=== PATIENT | female | born 1935 | race Asian ===

== ENCOUNTER 2020-06-30 23:59 | Inpatient (IN) | payer OTHER, MEDICARE, SELFPAY ==
[~2020-06-30] VITALS: Ht 160 cm; Wt 45.4 kg
[~2020-06-30 23:59] MED LIST: ASPI-1822 PO; ATOR20TA40 PO; CARV6.252 PO; HYDR25TA32 PO; LEVO5TAB12 PO; LOSA25TA1 PO; OMEP20TC PO
--- NOTE | 2020-07-01 00:11 | NUR ---
PATIENT TAKEN TO BED 11 VIA GURNEY WITH ASSISTANCE FROM EMS.
--- NOTE | 2020-07-01 00:15 | NUR ---
PT 84 Y/O FEMALE BIBA FROM HOME FOR C/O SOB FOLLOWED BY CP X 1 HOUR AT HOME. PER PATIENT SHE FELT SOB X 1 HOUR AND BEGAN TO FEEL CHEST PAIN SHORTLY AFTER. PATIENT STATES PAIN ,"IS TIGHT, ESPECIALLY WHEN I FEEL LIKE I CAN'T BREATHE." PATIENT NOTED WITH WHEEZING UPON EXPIRATION IN UPPER BILATERAL LOBES. PATIENT PLACED ON WATER SKI ASSEMBLER. PATIENT VSS, AFEBRILE. BED IS LOCKED AND IN LOWEST POSITION. MEDHX: HTN, GERD ALLERGIES: NKA RX: METROPOLOL, OMEPRAZOLE.
[2020-07-01 00:20] VITALS: BP 188/78
--- NOTE | 2020-07-01 00:30 | NUR ---
PATIENT GRAND DAUGHTER DEIRDRE [phone]
[2020-07-01] MEDS ORDERED: ALBUTEROL SULFATE/IPRATROPIU 3 ML SOL IH ONE (01:00)
[2020-07-01] MEDS ORDERED: AZITHROMYCIN 500 MG in DEXTROSE 5% 250 ML IV ONE (01:00)
[2020-07-01] MEDS ORDERED: DEXAMETHASONE 4 MG/ML VIAL IVP ONE (01:00)
--- NOTE | 2020-07-01 01:06 | NUR ---
BLOOD LABS COLLECTED AND HANDED TO TERESA BASS ON THE UNIT
--- NOTE | 2020-07-01 01:15 | NUR ---
NELLIE AND FLU SWAB COLLECTED, LABELED AND HANDED TO HYDRO STATION SUPERVISOR SHELIA ON THE UNIT.
[2020-07-01] MEDS ORDERED: cefTRIAXone 1,000 MG VIAL ONE (01:21)
[2020-07-01] MEDS ORDERED: AZITHROMYCIN 500 MG INJ VIAL IV ONE (01:32)
[2020-07-01 01:41] LABS: HEMATOCRIT 23.2 % (36-48); MEAN CORPUSCULAR HEMOGLOBIN 20 pg (27-31); MEAN CORPUSCULAR HGB CONC 29 g/dL (33-37); MEAN CORPUSCULAR VOLUME 68.7 fL (80-94); PLATELET COUNT (AUTO) 245 K/uL (140-450); RED BLOOD CELL COUNT(AUTO) 3.37 MIL/uL (4.20-5.40); RED CELL DISTRIBUTION WIDTH 20.2 % (11.6-13.7); WHITE BLOOD COUNT (AUTO) 13.9 K/uL (4.8-10.8)
[2020-07-01 01:53] LABS: HEMOGLOBIN 6.7 g/dL (12.0-16.0)
[2020-07-01 01:54] LABS: FIBRINOGEN 330 mg/dL (200-400)
[2020-07-01 01:58] LABS: LYMPHOCYTES % (MANUAL) 16 % (20-46); MONOCYTES % (MANUAL) 3 % (5-12)
[2020-07-01 02:03] LABS: ALBUMIN 3.3 g/dL (3.4-5.0); ANION GAP 16.9 (8-16); ASPARTATE AMINOTRANSFERASE 25 U/L (15-37); CARBON DIOXIDE 20.5 mmol/L (21-32); CHLORIDE 114 mmol/L (98-107); GLUCOSE 120 mg/dL (74-106); POTASSIUM 4.4 mmol/L (3.5-5.1); SODIUM SERUM 147 mmol/L (136-145); TOTAL BILIRUBIN 0.2 mg/dL (0.0-1.0); UREA NITROGEN, BLOOD 18 mg/dL (7-18)
[2020-07-01 02:10] LABS: C-REACTIVE PROTEIN QUANT 0.2 mg/dL (0.0-0.9)
[2020-07-01] MEDS ORDERED: NACL 0.9% 500 ML IV ONE (02:10)
[2020-07-01 02:11] LABS: D-DIMER 1740 ng/ml (0-400)
[2020-07-01] MEDS ORDERED: ASPIRIN 325 MG TAB PO ONE (02:15)
[2020-07-01 02:21] LABS: PROTHROMBIN TIME 10.2 secs (10.8-13.4)
--- NOTE | 2020-07-01 02:31 | NUR ---
PATIENT ASSTED TO BEDSIDE COMODE TO HAVE BM, AND URINATE. PATIENT IS SMAL, BROWN, FORMED, SKIN LEFT CLEAN AND DRY. SKIN INTACT.
[2020-07-01] MEDS ORDERED: OMEP20TC10 PO (02:47)
[2020-07-01] MEDS ORDERED: METO25TA14 PO (02:47)
[2020-07-01] MEDS ORDERED: ONDANSETRON 4 MG/2 ML VIAL IVP PRN (03:15)
--- NOTE | 2020-07-01 03:51 | NUR ---
PATIENT REMAINS ON FUR DRESSING SUPERVISOR. VSS. BED IS LOCKED AND IN LOWEST POSITON.
[2020-07-01 04:09] LABS: CREATINE KINASE MB 2.7 ng/mL (0-3.6)
--- NOTE | 2020-07-01 05:22 | NUR ---
PAGED TO REPORT ABNORMAL LAB.
--- NOTE | 2020-07-01 05:36 | NUR ---
NO NEW ORDERS RECIVED FROM FOR ABNORMAL TROPONIN LAB.
--- NOTE | 2020-07-01 05:45 | NUR ---
Consent signed per PATIENT GRANDDAUGHTER agreeing to administration of blood. Blood has been type and crossmatched. Blood sent from blood bank. Information on unit of blood checked against patient wristband at bedside by two nurses. All information matches. Patient or responsible libertarian informed of potential complications associated with blood transfusion. Informed of possible transfusion reaction symptoms. Aware of need to notify nurse at once of itching, shortness of breath, flushing, feeling of impending doom, or other symptoms not previously present. Vital signs taken within 5 minutes prior to initiation of transfusion. RN will remain with patient for first 15 minutes of transfusion at which time vital signs will be re-assessed.
--- NOTE | 2020-07-01 06:33 | NUR ---
PATIENT REMAINS ON DUST BRUSH ASSEMBLER. VSS. PATIENT RESTING WITH EYES CLOSED, RESPIRATIONS ARE EVEN AND UNLABORED. SKIN IS WARM AND DRY TO TOUCH. BED IS LOCKED AND IN LOWEST POSITION.
--- NOTE | 2020-07-01 07:30 | NUR ---
TRANSFER OF CARE GIVEN TO ALYCIA PEPE. PATIENT CONTINUES ON BLOOD TRANSFUSION. VSS. AND REMAINS ON CLAIM PROCESSING SPECIALIST.
--- NOTE | 2020-07-01 07:30 | NUR ---
RECIEVED REPORT FROM AFSHIN MARISCAL. TRANSFER OF CARE AT THIS TIME.
--- NOTE | 2020-07-01 08:30 | NUR ---
pt eating breakfast in bed. bed locked and in lowest position. side rails x2. all pt needs met at this time.
[2020-07-01] MEDS: PANTOPRAZOLE 40 MG TABEC PO SCH (09:00)
[2020-07-01] MEDS: carvediloL 6.25 MG TAB PO SCH ×2 (09:00→22:54)
[2020-07-01] MEDS: LOSARTAN 25 MG TAB PO SCH (09:00)
[2020-07-01] MEDS: ATORVASTATIN 20 MG TAB PO SCH (09:00)
[2020-07-01] MEDS: ASPIRIN 81 MG TAB.CHEW PO SCH (09:00)
[2020-07-01] MEDS: FUROSEMIDE 40 MG/4 ML VIAL IVP SCH ×2 (09:00→22:55)
[2020-07-01] MEDS ORDERED: ASPIRIN 81 MG TAB.CHEW ONE (09:58)
--- NOTE | 2020-07-01 10:35 | NUR ---
PATIENT HAS BEEN SCREENED AND CATEGORIZED MODERATE NUTRITION RISK. PATIENT WILL BE SEEN WITHIN 3-5 DAYS OF ADMISSION. 07/06/[address]
--- NOTE | 2020-07-01 11:57 | NUR ---
pt changed into new diaper and gown, new bed linens provided. hand stonecutter/pulse ox in place. bed locked and in lowest position. side rails x2.
--- NOTE | 2020-07-01 13:00 | NUR ---
PT PROVIDED WITH LUNCH TRAY. SAT PT UP IN BED. EATING FOOD.
--- NOTE | 2020-07-01 13:16 | NUR ---
SOCIAL WORK NOTE: Patient's Orientation Unable To Assess Information Provided By DEIRDRE EN - GRANDDAROJELIO Comments SW WAS UNABLE TO MEET PATIENT AT BEDSIDE DUE TO MEDICAL CONDITION. SW COMPLETED ASSESSMENT WITH GRANDDAUGHTER. Risk Lead, Realtionship and Phone Number DEIRDRE ERWIN GRANDDAUGHTER [phone] KEON ERWIN SON [phone] Healthcare Power of Hydrological Technical Officer No Does Patient Have a POLST No Identifying Problems No Social Work Triggers Is A Social Work Consult Needed No Mandate Report Filed No Explanation Of Identifying Problems PATIENT IS AN 84-YEAR-OLD FEMALE ADMITTED FOR ANEMIA. PATIENT HAS PMHX OF ANEMIA, HYPERTENSION, NSTEMI, CHF, AND AFIB. Admitted From Home Pre-Admission Level Of Functioning Status Independent With DME Prior Resources/Services Used In Last 12 Months No Prior Resources Used Prior DME Walker Living Situation Lives With Family House Patient Had Caregiver No Home Support No Caregiver Issues Financial Issues No Known Financial Issue Referral To The Financial Counselor Needed No Factors/Needs No D/C Needs Identified Pt/Rep Participated In Discharge Plan Yes Patient/Family Agress With Discharge Plan Yes Discharge Plan Comments TENTATIVE DISCHARGE PLAN IS FOR PATIENT TO RETURN HOME. DC Plan Status Initiated
--- NOTE | 2020-07-01 14:45 | NUR ---
PT CHANGED INTO CLEAN DIAPER, REPOSITIONED IN BED. INSPECTOR TOYS/PULSE OX IN PLACE. BED LOCKED AND IN LOWEST POSITION. ALL PT NEEDS MET AT THIS TIME.
--- NOTE | 2020-07-01 15:00 | NUR ---
DC PLANNIN YRS OLD FEMALE PATIENT WAS ADMITTED FROM HOME WITH A DX OF ANEMIA, METABOLIC ACIDOSIS, CHF ELEVATED TROPONIN. PT HAS A HX OF CORONARY DISEASE, A-FIB HTN AND ANEMIA. CXR SHOWED SUSPECTED TRACE BILATERAL PLEURAL EFFUSIONS. RAPID COVID TEST NEGATIVE. H/H 6.7/23.2 TRANSFUSED 1 UNIT PRBC H/H 8.6/28.0. ADMINISTERED ROCEPHIN IV ABX. CONSULTED WITH TRAFFIC ROUTING ENGINEER DR KELLY Aranda DC PLAN TO GO HOME WHEN STABLE CM TO FOLLOW Addendum: 07/03/20 at 1639 by Radha Fraser CM DC METAL TUBE CUTTER: SPOKE TO PATIENTS GRANDDAUGHTER DEIRDRE [phone] TO DISCUSS SNF. SHE AND HER FAMILY ARE NOT AGREEABLE TO SNF.
--- NOTE | 2020-07-01 17:08 | NUR ---
PT ASLEEP IN BED. EQUAL CHEST RISE AND FALL. NO ACUTE DISTRESS NOTED AT THIS TIME. BED LOCKED IN LOWEST POSITION. SIDE RAILS X2. BEDSIDE MONITOR IN PLACE. CALL LIGHT WITHIN REACH.
--- NOTE | 2020-07-01 17:30 | NUR ---
PT ASSISTED WITH DIAPTER CHANGE. PT SACRAL AREA CLEANED, CHUCKS AND DIAPER REPLACED. PT HAD BOWEL MOVEMENT X 1, BROWN, FORMED. PT PLACED BACK IN POSITION OF COMFORT WITH NO ACUTE DISTRESS NOTED AT THIS TIME. EQUAL CHEST RISE AND FALL. BED LOCKED IN LOWEST POSITION. SIDE RAILS X2. BEDSIDE MONITOR IN PLACE. CALL LIGHT WITHIN REACH.
--- NOTE | 2020-07-01 18:57 | NUR ---
pt provided with dinner tray
--- NOTE | 2020-07-01 19:30 | NUR ---
RECEIVED REPORT FROM AFSHIN TONG FOR CONTINUATION OF CARE AT THIS TIME. PT IS AWAKE AND REQUESTING HER LIGHTS TO BE TURNED OFF. PT DOESN'T WANT STACIA CARE AT THIS TIME. PT IS CONNECTED TO THE VENETIAN BLIND CLEANER. SAO2@99% ON 2L NC. PT IS NOT IN ANY ACUTE DISTRESS AT THIS TIME. BED IS LOCKED AND IN LOWEST POSITION. SIDE RAILSX1. CALL LIGHT WITHIN REACH. NO VISIBLE DISTRESS NOTED. WILL CONTINUE TO MONITOR.
--- NOTE | 2020-07-01 19:30 | NUR ---
TRANSFER OF CARE AND REPORT GIVEN TO AFSHIN COLLADO. VITAL SIGNS STABLE.
--- NOTE | 2020-07-01 20:00 | NUR ---
PT UNWILLING TO PROVIDE URINE SPECIMEN AT THIS TIME. SHE DOESN'T WANT TO BE PROVIDED WITH STACIA-CARE AT THIS TIME.
--- NOTE | 2020-07-01 21:30 | NUR ---
PT IS ASLEEP. LIGHT TURNED OF. VISIBLE RISE AND FALL OF CHEST NOTED. PT IS CONNECTED TO THE MAYONNAISE MIXER. SAO2@99% ON 2L NC. PT IS NOT IN ANY ACUTE DISTRESS AT THIS TIME. BED IS LOCKED AND IN LOWEST POSITION. SIDE RAILSX1. CALL LIGHT WITHIN REACH. WILL CONTINUE TO MONITOR.
--- NOTE | 2020-07-01 22:30 | NUR ---
PT DOESN'T WANT TO USE BEDPAN AT THIS TIME- URINE SPECIMEN NOT COLLECTED
--- NOTE | 2020-07-01 23:30 | NUR ---
PT IS ASLEEP. VISIBLE RISE AND FALL OF CHEST NOTED. PT IS CONNECTED TO THE ROOFING SUPERINTENDENT. SAO2@99% ON 2L NC. PT IS NOT IN ANY ACUTE DISTRESS AT THIS TIME. BED IS LOCKED AND IN LOWEST POSITION. SIDE RAILSX1. CALL LIGHT WITHIN REACH. WILL CONTINUE TO MONITOR.
--- NOTE | 2020-07-02 01:30 | NUR ---
PT IS SLEEPING ON HER LEFT SIDE. BED IS IN LOW FOWLERS POSITION. VISIBLE RISE AND FALL OF CHEST NOTED. PT IS CONNECTED TO THE COUGAR HUNTER. SAO2@99% ON 2L NC. PT IS NOT IN ANY ACUTE DISTRESS AT THIS TIME. BED IS LOCKED AND IN LOWEST POSITION. SIDE RAILSX1. CALL LIGHT WITHIN REACH. WILL CONTINUE TO MONITOR.
--- NOTE | 2020-07-02 01:50 | NUR ---
CALLED AFSHIN DELANEY TO GIVE REPORT TO HER FOR TRANSFER OF CARE AND ADMISSION TO TELEMETRY FLOOR.
[2020-07-02 02:18] VITALS: BP 130/59
--- NOTE | 2020-07-02 02:18 | NUR ---
PT ARRIVED FROM ER ON GURNEY. PT WAS TRANSFERRED TO BED. PT IS AWAKE, LAYING IN SEMI FOWLERS POSITION. ON 2L O2 NC. BREATHING IS UNLABORED. CHEST RISE AND FALL IS SYMMETRICAL. DIAPER IN PLACE AND DRY. BOWEL SOUNDS ARE PRESENT IN ALL QUADRANTS. SKIN IS WARM, DRY, AND INTACT. IV IS IN THE LEFT WRIST 22 GAUGE SALINE LOCKED. PT IS COVID NEGATIVE. PLAN OF CARE DISCUSSED. PT IS STABLE. FALL PRECAUTIONS NOW IN PLACE.
--- NOTE | 2020-07-02 02:20 | NUR ---
TWO UNITS OF PRBC'S ORDERED. ONE UNIT WAS GIVEN IN THE ED ON 07/01 AT 0510 AM. SECOND UNIT WAS NOT ADMINISTERED IN ED ALL DAY. ORDERED A STAT H&H AND APPAREL PATTERN MAKER IS NOW AT THE BEDSIDE DRAWING THE LABS. WILL WAIT FOR RESULTS.
--- NOTE | 2020-07-02 02:25 | NUR ---
Patient will be admitted to care of . Admited to TELEMETRY. Will go to [id number]. Belongings list completed. Report to AFSHIN DELANEY.
[2020-07-02 02:35] LABS: HEMATOCRIT 25.8 % (36-48); HEMOGLOBIN 8.1 g/dL (12.0-16.0)
[2020-07-02 03:06] LABS: CREATINE KINASE MB 3.6 ng/mL (0-3.6)
--- NOTE | 2020-07-02 03:10 | NUR ---
RECEIVED RESULTS FROM FAMILY DINNER SERVICE SPECIALIST FOR H&H. HEMOGLOBIN IS 8.1 AND HCT 25.8. TRANSFUSE UNDER 7.0 AFTER SPEAKING WITH CHARGE NURSE. PT IS STABLE AT THIS TIME. NO BOWEL MOVEMENT YET FOR OCCULT STOOL SAMPLE.
[2020-07-02 04:00] VITALS: BP 147/57
--- NOTE | 2020-07-02 04:00 | NUR ---
PT IS LAYING AWAKE IN BED. PT YELLS ALOUD EVERY NOW AND THEN. USED REDIRECTION TO CALM PT DOWN. PT IS RESTLESS AND WILL NOT SLEEP AT THIS TIME. WILL CONTINUE TO MONITOR.
--- NOTE | 2020-07-02 06:00 | NUR ---
PT IS AWAKE AND ASKED TO USE THE RESTROOM. PT WAS ASSISTED TO THE RESTROOM. GAIT IS VERY UNSTEADY. BEDPAN NEEDED FOR NEXT VOID. PT IS BACK IN BED AND STABLE. 2L O2 NC IN PLACE WITH BREATHING UNLABORED.
[2020-07-02 07:35] LABS: ALBUMIN 3.6 g/dL (3.4-5.0); ANION GAP 17.7 (8-16); ASPARTATE AMINOTRANSFERASE 20 U/L (15-37); CARBON DIOXIDE 23.1 mmol/L (21-32); CHLORIDE 107 mmol/L (98-107); CREATININE 1.2 mg/dL (0.6-1.3); GLUCOSE 137 mg/dL (74-106); MAGNESIUM 1.7 mg/dL (1.8-2.4); POTASSIUM 3.8 mmol/L (3.5-5.1); SODIUM SERUM 144 mmol/L (136-145); TOTAL BILIRUBIN 0.8 mg/dL (0.0-1.0); UREA NITROGEN, BLOOD 31 mg/dL (7-18)
--- NOTE | 2020-07-02 07:35 | NUR ---
ENDORSED PT TO DAY SHIFT NURSE FOR CONTINUITY OF CARE. PT IS STABLE AT THIS TIME. NO RESPIRATORY DISTRESS OR SOB. PLAN OF CARE DISCUSSED.
--- NOTE | 2020-07-02 07:40 | NUR ---
PT IS VERY RESTLESS. GETTING OUT OF BED AND GAIT IS UNSTEADY. WHEN TRYING TO ASSIST PT BACK IN BED, SHE TRIES TO KICK AND HIT THE STAFF. PT IS NOW TRYING TO PULL OUT IV LINES AND PULLED OFF NASAL CANNULA. PT WAS TRIED TO CALM DOWN. WILL INFORM DOCTOR.
--- NOTE | 2020-07-02 07:45 | NUR ---
ENDORSED PT TO DAY SHIFT NURSE FOR CONTINUITY OF CARE. PT IS STABLE AT THIS TIME. NO RESPIRATORY DISTRESS OR SOB. PLAN OF CARE DISCUSSED.
--- NOTE | 2020-07-02 07:46 | NUR ---
RECEIVED REPORT FROM VOCATIONAL SCHOOL TEACHER RN FOR CONTINUITY CARE. PT APPEARS AGITATED PULLING ON TUBES AND ATTEMPTING TO GET OUT OF BED. PRIOR INCIDENT OF HITTING STAFF. WILL CONTINUE WITH POC.
[2020-07-02 08:00] VITALS: BP 141/58
--- NOTE | 2020-07-02 08:05 | NUR ---
TEXTED DR. DOMINGO TO INFORM HIM THAT THE PT KICKED STAFF MEMBERS, TRIED TO BITE A CASTING DIRECTOR, AND IS ATTEMPTING TO PULL OUT LINES. SUGGESTION IS SOFT WRIST RESTRAINTS. DOCTOR CONFIRMED TO PUT PT ON RESTRAINTS.
[2020-07-02 08:09] LABS: HEMOGLOBIN 8.6 g/dL (12.0-16.0); MEAN CORPUSCULAR HEMOGLOBIN 22 pg (27-31); MEAN CORPUSCULAR HGB CONC 31 g/dL (33-37); MEAN CORPUSCULAR VOLUME 70.1 fL (80-94); PLATELET COUNT (AUTO) 217 K/uL (140-450); RED BLOOD CELL COUNT(AUTO) 3.99 MIL/uL (4.20-5.40); RED CELL DISTRIBUTION WIDTH 23.1 % (11.6-13.7); WHITE BLOOD COUNT (AUTO) 7.5 K/uL (4.8-10.8)
--- NOTE | 2020-07-02 08:55 | NUR ---
SCHEDULED MEDICATION GIVEN PT TOLERATED WELL PT IS AWAKE UNABLE TO ASSESS ORIENTATION DUE TO LANGUAGE BARRIER REMAINS ON SOFT WRIST RESTRAINTS. NO CIRCULATORY IMPAIRMENT NO INJURIES. LUNG SOUNDS ARE CLEAR, ABD IS SOFT AND NONTENDER WITH ACTIVE BS X4. SKIN INTACT. HAS PATENT AND INTACT IV TO L WRIST. ON 2L NC AT 100% WILL TITRATE SAFETY MEASURES IN PLACE.
[2020-07-02 09:00] LABS: LYMPHOCYTES % (MANUAL) 15 % (20-46); MONOCYTES % (MANUAL) 5 % (5-12)
[2020-07-02 09:09] LABS: LACTATE DEHYDROGENASE 146 IU/L (119-226)
[2020-07-02] MEDS: ATORVASTATIN 20 MG TAB PO SCH (09:27)
[2020-07-02] MEDS: FUROSEMIDE 40 MG/4 ML VIAL IVP SCH ×2 (09:27→21:05)
[2020-07-02] MEDS: LOSARTAN 25 MG TAB PO SCH (09:27)
[2020-07-02] MEDS: PANTOPRAZOLE 40 MG TABEC PO SCH (09:27)
[2020-07-02] MEDS: carvediloL 6.25 MG TAB PO SCH ×2 (09:27→21:05)
--- NOTE | 2020-07-02 10:55 | NUR ---
PT SITING UP IN BED COOPERATIVE WITH PT. PT IS SITTING UP FEEDING SELF RESTRAINTS REMOVED FOR ROM AND TO FEED SELF NOT AGITATED AT THIS TIME. WILL REASSESS FOR NEEDS FOR RESTRAINTS. NOT ATTEMPTING TO GET OUT OF BED. SITTING IN FRONT OF HER ROOM FOR OBSERVATION.
[2020-07-02 12:00] VITALS: BP 107/46
--- NOTE | 2020-07-02 12:50 | NUR ---
REMAINS ON SOFT WRIST DUE TO REMOVING TUBES AND ATTEMPTING TO GET OUT OF BED. ALL NEEDS MET AT THIS TIME.
--- NOTE | 2020-07-02 14:56 | NUR ---
REMAINS ON SOFT WRIST CONTINUES TO ATTEMPT TO GET OUT OF BED AND REMOVE TUBES. PT REORIENTED ROM PROVIDED ALL NEEDS MET.
[2020-07-02 14:59] LABS: FERRITIN 8 ng/mL (15 - 150)
[2020-07-02 16:00] VITALS: BP 130/56
--- NOTE | 2020-07-02 16:30 | NUR ---
PT RESTING IN BED IN NO DISTRESS. ALL NEEDS MET.
--- NOTE | 2020-07-02 18:30 | NUR ---
SPOKE WITH THE GRANDDAUGHTER WHO WAS CONCERNED ABOUT PT SOUNDING CONFUSED PT KNOWS YOUR NAME AND KNOWS SHE IS AT THE HOSPITAL. GRANDDAUGHTER WAS PROVIDED WITH UPDATE REGARDING PTS CONDITION. FAMILY STATED PT AMBULATES AT HOME WITH WALKER AND WILL SOMETIMES GET AGGRESSIVE TOWARD FAMILY. PT REMAINS ON SOFT WRIST HOWEVER CURRENTLY REMOVED FOR HER TO FEED SELF PT CLOSELY ASSESSED.
--- NOTE | 2020-07-02 19:28 | NUR ---
PT ENDORSED TO WELDER PLASTIC RN FOR CONTINUITY OF CARE. PT IS STABLE AT THIS TIME. LAYING IN BED. BED ALARM ON.
[2020-07-02 20:00] VITALS: BP 110/50
[2020-07-02] MEDS ORDERED: cefTRIAXone 1,000 MG VIAL ONE (23:52)
[2020-07-03 00:01] VITALS: BP 96/55
--- NOTE | 2020-07-03 01:24 | NUR ---
PATIENT IN BED, MEDICATION GIVEN, IV ABT INFUSED. ASSISTED IN DINNER. NO NEED FOR SOFT WRIST RESTRAINT. CALM, ON 2 L N/C WILL CONTINUE TO MONITOR.
[2020-07-03 04:00] VITALS: BP 120/56
[2020-07-03 06:00] VITALS: BP 120/56
--- NOTE | 2020-07-03 07:20 | NUR ---
RECEIVED REPORT FROM NIGHT NURSE PATIENT IS AAOX2-3 ON 2LPM OXYGEN VIA NC, SKIN INTACT IV INTACT ON LEFT WRIST SALINE LOCK RESTRAIN D/C PER NIGHT NURSE S/P 1 UNIT PRBC ON 1.5 FLUID RESTRICTION, CARDIAC DIET. SAFETY MEASURES IN PLACE AND CALL LIGHT WITHIN REACH. WILL CONTINUE TO MONITOR.
[2020-07-03] MEDS: ASPIRIN 81 MG TAB.CHEW PO SCH (08:20)
[2020-07-03] MEDS: PANTOPRAZOLE 40 MG TABEC PO SCH (08:20)
[2020-07-03] MEDS: carvediloL 6.25 MG TAB PO SCH ×2 (08:21→21:00)
[2020-07-03] MEDS: LOSARTAN 25 MG TAB PO SCH (08:21)
[2020-07-03] MEDS: ATORVASTATIN 20 MG TAB PO SCH (08:21)
[2020-07-03] MEDS: FUROSEMIDE 40 MG/4 ML VIAL IVP SCH ×2 (08:22→21:00)
--- NOTE | 2020-07-03 08:27 | NUR ---
MEDICATION GIVEN AND CHECK VITAL SIGNS PRIOR TO MEDICATION BP 114/52 NH 73. PATIENT TOLERATED WELL AND STABLE.
--- NOTE | 2020-07-03 08:29 | NUR ---
PATIENT ON GOING PHYSICAL THERAPY AT THIS TIME PT TOLERATED WELL NO DISTRESS NOTED.
--- NOTE | 2020-07-03 10:30 | NUR ---
MADE ROUNDS AT THIS TIME PATIENT IS SLEEPING NO DISTRESS NOTED.
[2020-07-03 12:00] VITALS: BP 92/32
--- NOTE | 2020-07-03 12:30 | NUR ---
VITAL SIGNS TAKEN BP AT 92/32 CA 82 AND PATIENT IS AETING WELL AND ABLE TO FINISH FOOD
--- NOTE | 2020-07-03 12:40 | NUR ---
PATIENTS BLOOD PRESSURE 92/[address] DOMINGO AWARE,
[2020-07-03 16:00] VITALS: BP 98/37
--- NOTE | 2020-07-03 16:00 | NUR ---
MADE ROUNDS AND CHECK VITAL SIGNS BP 98/37 PA 65. NO DISTRESS NOTED
--- NOTE | 2020-07-03 18:29 | NUR ---
NO NEED FOR SOFT RESTRAIN THE WHOLE SHIFT PATIENT IS CALM AND COOPERATIVE.
--- NOTE | 2020-07-03 19:24 | NUR ---
ENDORSED TO NIGHT NURSE FOR CONTINUITY OF CARE. PT IS STABLE
--- NOTE | 2020-07-03 19:25 | NUR ---
RECEIVED ENDORSEMENT FROM AM SHIFT RN. AOX2, NO SOB, NO DISTRESS, ON 2L NC, SAFETY MEASURES IN PLACE, PLAN OF CARE DISCUSSED, CALL LIGHT WITHIN REACH.
[2020-07-03 20:00] VITALS: BP 111/43
[2020-07-03] MEDS: ACETAMINOPHEN 325 MG TAB PO PRN (20:37)
--- NOTE | 2020-07-03 21:30 | NUR ---
LASIX AND COREG NOT GIVEN DUE TO BP OF 125/31 HR 79. WILL MONITOR.
[2020-07-04] VITALS: BP 132/36
--- NOTE | 2020-07-04 01:00 | NUR ---
V/S RECHECKED 154/61 HR 80. LASIX GIVEN AND COREG PO GIVEN.
[2020-07-04] MEDS: FUROSEMIDE 40 MG/4 ML VIAL IVP SCH ×3 (01:16→22:01)
[2020-07-04] MEDS: carvediloL 6.25 MG TAB PO SCH ×3 (01:18→21:00)
--- NOTE | 2020-07-04 02:00 | NUR ---
SLEEPING, RESPIRATION EVEN AND UNLABORED, CALL LIGHT WITHIN REACH.
[2020-07-04 04:00] VITALS: BP 113/40
--- NOTE | 2020-07-04 04:00 | NUR ---
V/S TAKE AND RECORDED, NO DISTRESS, CALL LIGHT WITHIN REACH.
--- NOTE | 2020-07-04 07:14 | NUR ---
PT STABLE, NO SOB, NO DISTRESS, CALL LIGHT WITHIN REACH.
--- NOTE | 2020-07-04 07:19 | NUR ---
RECEIVED REPORT FROM NIGHTSHIFT NURSE. PT RESTING IN BED. ABLE TO MAKE NEEDS KNOWN. RESPIRATIONS EVEN AND UNLABORED WITH NO SOB OR RESPIRATORY DISTRESS. SKIN WARM AND DRY TO TOUCH. IV SITE IN L WRIST 22G IS CLEAN, DRY, AND INTACT. SAFETY MEASURES IN PLACE. WILL CONTINUE TO MONITOR
[2020-07-04 08:00] VITALS: BP 103/44
[2020-07-04 08:07] LABS: LD1 FRACTION 27 % (17-32); LD2 FRACTION 33 % (25-40); LD3 FRACTION 22 % (17-27); LD4 FRACTION 8 % (5-13); LD5 FRACTION 10 % (4-20)
[2020-07-04] MEDS: ATORVASTATIN 20 MG TAB PO SCH (08:32)
[2020-07-04] MEDS: PANTOPRAZOLE 40 MG TABEC PO SCH (08:32)
[2020-07-04] MEDS: LOSARTAN 25 MG TAB PO SCH (08:33)
[2020-07-04] MEDS: ASPIRIN 81 MG TAB.CHEW PO SCH (08:33)
--- NOTE | 2020-07-04 08:41 | NUR ---
ADMINISTERED SCHED MED PRESCRIBED PER MD ORDER. PT TOLERATED WELL. MEDICATION EDUCATION PERFORMED. PT VERBALIZED UNDERSTANDING. SAFETY MEASURES IN PLACE. WILL CONTINUE TO MONITOR
--- NOTE | 2020-07-04 10:15 | NUR ---
PT RESTING IN BED. ABLE TO MAKE NEEDS KNOWN. RESPIRATIONS EVEN AND UNLABORED WITH NO SOB OR RESPIRATORY DISTRESS. SKIN WARM AND DRY TO TOUCH. SAFETY MEASURES IN PLACE. WILL CONTINUE TO MONITOR
[2020-07-04] MEDS ORDERED: IRON SUCROSE COMPLEX 100 MG/5 ML VIAL IVP SCH (12:00)
--- NOTE | 2020-07-04 12:13 | NUR ---
ADMINISTERED SCHED MED PRESCRIBED PER MD ORDER. PT TOLERATED WELL. MEDICATION EDUCATION PERFORMED. PT VERBALIZED UNDERSTANDING. SAFETY MEASURES IN PLACE. WILL CONTINUE TO MONITOR
[2020-07-04 12:17] LABS: BASOPHILS % (AUTO) 0.2 % (0.0-2.0); EOSINOPHILS # (AUTO) 0.1 K/uL (0-0.4); EOSINOPHILS % (AUTO) 1.2 % (0.0-4.0); HEMATOCRIT 26.6 % (36-48); HEMOGLOBIN 8.2 g/dL (12.0-16.0); LYMPHOCYTES # (AUTO) 1.8 K/uL (2.5-16.5); LYMPHOCYTES % (AUTO) 23.9 % (20.5-51.1); MEAN CORPUSCULAR HEMOGLOBIN 21 pg (27-31); MEAN CORPUSCULAR HGB CONC 31 g/dL (33-37); MEAN CORPUSCULAR VOLUME 69.1 fL (80-94); MONOCYTES # (AUTO) 0.7 K/uL (0.8-1.0); MONOCYTES % (AUTO) 9.7 % (1.7-9.3); NEUTROPHILS # (AUTO) 4.9 K/uL (1.8-7.7); PLATELET COUNT (AUTO) 202 K/uL (140-450); RED BLOOD CELL COUNT(AUTO) 3.85 MIL/uL (4.20-5.40); RED CELL DISTRIBUTION WIDTH 23.1 % (11.6-13.7); WHITE BLOOD COUNT (AUTO) 7.6 K/uL (4.8-10.8)
[2020-07-04 12:34] LABS: ALBUMIN 3.4 g/dL (3.4-5.0); ANION GAP 16.9 (8-16); ASPARTATE AMINOTRANSFERASE 19 U/L (15-37); CARBON DIOXIDE 24.8 mmol/L (21-32); CHLORIDE 105 mmol/L (98-107); CREATININE 1.4 mg/dL (0.6-1.3); GLUCOSE 99 mg/dL (74-106); POTASSIUM 3.7 mmol/L (3.5-5.1); SODIUM SERUM 143 mmol/L (136-145); TOTAL BILIRUBIN 0.4 mg/dL (0.0-1.0); UREA NITROGEN, BLOOD 54 mg/dL (7-18)
--- NOTE | 2020-07-04 13:45 | NUR ---
ASSISTED PT TO BATHROOM AND BACK TO BED. NO SIGNS OD DISTRESS NOTED. SAFETY MEASURES IN PLACE. WILL CONTINUE TO MONITOR
[2020-07-04 16:00] VITALS: BP 100/42
[2020-07-04] MEDS: ACETAMINOPHEN 325 MG TAB PO PRN ×2 (17:45→22:11)
--- NOTE | 2020-07-04 17:50 | NUR ---
PT COMPLAINED OF MILD HEADACHE. PRN TYLENOL ADMINISTERED PRESCRIBED PER MD ORDER. PT TOLERATED WELL. SAFETY MEASURE IN PLACE. WILL CONTINUE TO MONITOR
--- NOTE | 2020-07-04 19:15 | NUR ---
ENDORSED TO NIGHTSHIFT FOR CONTINUITY OF CARE. PT IS STABLE
[2020-07-04 20:00] VITALS: BP 129/48
--- NOTE | 2020-07-04 20:00 | NUR ---
RECEIVED PATIENT AWAKE IN BED, PT ON RA. NO SOB OR C/O CHEST PAIN. FALL PRECAUTIONS IN PLACE. CALL LIGHT WITHIN REACH. WILL CONTINUE TO MONITOR
--- NOTE | 2020-07-04 22:11 | NUR ---
PATIENT C/O HEADACHE. PRN TYLENOL ADMINISTERED
--- NOTE | 2020-07-05 03:23 | NUR ---
PATIENT ASLEEP IN BED. NO S/S OF DISTRESS NOTED
[2020-07-05 04:00] VITALS: BP 146/63
--- NOTE | 2020-07-05 07:20 | NUR ---
REPORT GIVEN TO AM NURSE
--- NOTE | 2020-07-05 07:21 | NUR ---
RECEIVED PATIENT FROM NIGHT NURSE. PATIENT IN BED SLEEPING, CHEST NOTED RISING. NO ACUTE S/S DISTRESS AT THIS TIME. RESP EVEN AND UNLABORED ON ROOM AIR. LFA 22G, SL. HOB ELEVATED. SAFETY MEASURES IN PLACE. CALL LIGHT WITHIN REACH. WILL CONTINUE TO MONITOR.
[2020-07-05] MEDS: LOSARTAN 25 MG TAB PO SCH (09:00)
[2020-07-05] MEDS: ACETAMINOPHEN 325 MG TAB PO PRN ×2 (10:01→17:50)
[2020-07-05] MEDS: ASPIRIN 81 MG TAB.CHEW PO SCH (10:01)
[2020-07-05] MEDS: PANTOPRAZOLE 40 MG TABEC PO SCH (10:02)
[2020-07-05] MEDS: carvediloL 6.25 MG TAB PO SCH ×2 (10:02→20:54)
[2020-07-05] MEDS: FUROSEMIDE 40 MG/4 ML VIAL IVP SCH ×2 (10:03→20:54)
[2020-07-05] MEDS: ATORVASTATIN 20 MG TAB PO SCH (10:04)
--- NOTE | 2020-07-05 10:05 | NUR ---
PATIENT IN BED AWAKE AND ALERT. RESP EVEN AND UNLABORED ON ROOM AIR. C/O HEADACHE AND GIVEN TYLENOL. MORNING ROUTINE MEDICATIONS GIVEN. COZAAR HELD. LFA 22G INTACT AND PATENT, SL. PLAN OF CARE DISCUSSED, PATIENT VERBALIZED UNDERSTANDING. NO NOTED ACUTE S/S DISTRESS AT THIS TIME. CALL LIGHT WITHIN REACH. WILL CONTINUE TO MONITOR.
--- NOTE | 2020-07-05 12:44 | NUR ---
PATIENT IN BED SLEEPING, CHEST NOTED RISING. NO ACUTE S/S DISTRESS AT THIS TIME. CALL LIGHT WITHIN REACH. WILL CONTINUE TO MONITOR.
[2020-07-05 13:52] LABS: BASOPHILS % (AUTO) 0.2 % (0.0-2.0); EOSINOPHILS # (AUTO) 0.1 K/uL (0-0.4); HEMOGLOBIN 8.7 g/dL (12.0-16.0); LYMPHOCYTES # (AUTO) 2.1 K/uL (2.5-16.5); LYMPHOCYTES % (AUTO) 27.1 % (20.5-51.1); MEAN CORPUSCULAR HEMOGLOBIN 22 pg (27-31); MEAN CORPUSCULAR HGB CONC 31 g/dL (33-37); MEAN CORPUSCULAR VOLUME 69.6 fL (80-94); MONOCYTES # (AUTO) 0.6 K/uL (0.8-1.0); MONOCYTES % (AUTO) 7.5 % (1.7-9.3); NEUTROPHILS # (AUTO) 4.9 K/uL (1.8-7.7); NEUTROPHILS % (AUTO) 64.2 % (42.2-75.2); PLATELET COUNT (AUTO) 223 K/uL (140-450); RED BLOOD CELL COUNT(AUTO) 4.02 MIL/uL (4.20-5.40); RED CELL DISTRIBUTION WIDTH 23.4 % (11.6-13.7); WHITE BLOOD COUNT (AUTO) 7.6 K/uL (4.8-10.8)
[2020-07-05 13:57] LABS: ANION GAP 14.7 (8-16); CARBON DIOXIDE 25.4 mmol/L (21-32); CHLORIDE 104 mmol/L (98-107); CREATININE 1.3 mg/dL (0.6-1.3); GLUCOSE 141 mg/dL (74-106); POTASSIUM 4.1 mmol/L (3.5-5.1); SODIUM SERUM 140 mmol/L (136-145); UREA NITROGEN, BLOOD 53 mg/dL (7-18)
[2020-07-05 14:16] LABS: MAGNESIUM 2.1 mg/dL (1.8-2.4); PHOSPHORUS 5.2 mg/dL (2.5-4.9)
--- NOTE | 2020-07-05 14:23 | NUR ---
PATIENT IN BED SLEEPING, NO NOTED ACUTE S/S DISTRESS. CALL LIGHT WITHIN REACH. WILL CONTINUE TO MONITOR.
--- NOTE | 2020-07-05 15:29 | NUR ---
PATIENT WAS ASSISTED AMBULATING TO THE BATHROOM BY STRATEGIC MARKETING ASSOCIATE. PATIENT TOLERATED WELL. DENIED OF PAIN. CALL LIGHT WITHIN REACH. WILL CONTINUE TO MONITOR.
--- NOTE | 2020-07-05 15:33 | NUR ---
07/05/20 RD INITIAL ASSESSMENT COMPLETED PLEASE REFER TO NUTRITION ASSESSMENT UNDER CARE ACTIVITY FOR ESTIMATED NUTRITIONAL NEEDS. 1. CONTINUE CARDIAC DIET, [facility] SOFT DIET TOLERATED 2. FLUID RESTRICTION PER MD 3. RD TO FOLLOW-UP 3-5 DAYS, MODERATE RISK HIMA WAGNER, RD
[2020-07-05 16:00] VITALS: BP 125/60
--- NOTE | 2020-07-05 18:25 | NUR ---
PATIENT MOVED TO 111A D/T NOISE COMPLAINT OF ROOMMATE. PATIENT SITTING IN BED EATING DINNER. NO ACUTE S/S DISTRESS AT THIS TIME. CALL LIGHT WITHIN REACH. WILL CONTINUE TO MONITOR.
--- NOTE | 2020-07-05 19:10 | NUR ---
ENDORSED PATIENT TO NIGHT NURSE. PATIENT IN STABLE CONDITION.
--- NOTE | 2020-07-05 19:30 | NUR ---
AWAKE.A&OX2.RESP.UNLABORED IN RA.SL PATENT IN LT.FA.LUNGS DIMINISHED.CALL LIGHT IN REACH.WILL CONTINUE MONITORING.
[2020-07-05 20:00] VITALS: BP 152/61
--- NOTE | 2020-07-06 02:25 | NUR ---
SLEEPING.NO DISTRESS NOTED.CALL LIGHT IN REACH.
[2020-07-06 04:00] VITALS: BP 132/58
[2020-07-06] MEDS: ACETAMINOPHEN 325 MG TAB PO PRN ×2 (05:52→12:40)
--- NOTE | 2020-07-06 06:28 | NUR ---
HAD C/O GENERALIZED PAIN.THLENOL PO GIVEN.WILL REASSESS PAIN LATER,PER POLICY.
--- NOTE | 2020-07-06 07:30 | NUR ---
RECEIVED PT ON BED AWAKE. NO SOB NOTED. NO C/O PAIN AT THIS TIME. INSTRUCTED TO CALL FOR ASSISTANCE, BED ON LOW POSITION, 3 SIDE RAILS RAISED UP, CALL LIGHT WITHIN REACH, PT VERBALIZED UNDERSTANDING.
[2020-07-06 08:00] VITALS: BP 140/53
[2020-07-06] MEDS: LOSARTAN 25 MG TAB PO SCH (10:03)
[2020-07-06] MEDS: ASPIRIN 81 MG TAB.CHEW PO SCH (10:03)
[2020-07-06] MEDS: PANTOPRAZOLE 40 MG TABEC PO SCH (10:03)
[2020-07-06] MEDS: ATORVASTATIN 20 MG TAB PO SCH (10:04)
[2020-07-06] MEDS: FUROSEMIDE 40 MG/4 ML VIAL IVP SCH (10:04)
[2020-07-06] MEDS: carvediloL 6.25 MG TAB PO SCH (10:05)
[2020-07-06 10:51] LABS: BASOPHILS % (AUTO) 0.3 % (0.0-2.0); EOSINOPHILS # (AUTO) 0.1 K/uL (0-0.4); HEMATOCRIT 28.4 % (36-48); HEMOGLOBIN 8.6 g/dL (12.0-16.0); LYMPHOCYTES # (AUTO) 1.5 K/uL (2.5-16.5); MEAN CORPUSCULAR HEMOGLOBIN 21 pg (27-31); MEAN CORPUSCULAR HGB CONC 30 g/dL (33-37); MEAN CORPUSCULAR VOLUME 69.4 fL (80-94); MONOCYTES # (AUTO) 0.6 K/uL (0.8-1.0); MONOCYTES % (AUTO) 8.8 % (1.7-9.3); NEUTROPHILS # (AUTO) 4.1 K/uL (1.8-7.7); NEUTROPHILS % (AUTO) 64.9 % (42.2-75.2); PLATELET COUNT (AUTO) 203 K/uL (140-450); RED BLOOD CELL COUNT(AUTO) 4.09 MIL/uL (4.20-5.40); RED CELL DISTRIBUTION WIDTH 23.4 % (11.6-13.7); WHITE BLOOD COUNT (AUTO) 6.3 K/uL (4.8-10.8)
[2020-07-06 11:00] LABS: ANION GAP 12.9 (8-16); CARBON DIOXIDE 26.9 mmol/L (21-32); CHLORIDE 102 mmol/L (98-107); CREATININE 1.1 mg/dL (0.6-1.3); GLUCOSE 131 mg/dL (74-106); POTASSIUM 3.8 mmol/L (3.5-5.1); SODIUM SERUM 138 mmol/L (136-145); UREA NITROGEN, BLOOD 48 mg/dL (7-18)
[2020-07-06] MEDS ORDERED: TAP5 PO (12:03)
[2020-07-06] MEDS ORDERED: FERR324T11 PO (12:03)
[2020-07-06] MEDS ORDERED: FURO-570 PO (12:03)
[2020-07-06] MEDS ORDERED: POTA10TE30 PO (12:03)
--- NOTE | 2020-07-06 15:00 | NUR ---
DISCHARGE INSTRUCTIONS AND PRESCRIPTIONS EXPLAINED TO PT'S DAUGHTER IN LAW KAYLEE OVER THE PHONE # [phone], VERBALIZED FULL UNDERSTANDING OF THE INSTRUCTIONS GIVEN AND THE NEED TO FOLLOW UP WITH PCP AND CARDIOLOGY WITHIN 7-14 DAYS.
--- NOTE | 2020-07-06 15:15 | NUR ---
ARM BANDS AND IV REMOVED, CANNULA TIP INTACT. PT CHANGED TO FRESH CLOTHES BROUGHT BY FAMILY.
--- NOTE | 2020-07-06 15:30 | NUR ---
PT WHEELED TO THE FRONT CURB IN STABLE CONDITION. NO SOB NOTED. NO COMPLAINTS MADE. PT IS DISCHARGE WITH FAMILY, PRESCRIPTIONS GIVEN TO FAMILY TO FACILITATE WITH THE REFILLS.
== END 2020-07-06 15:30 | disposition home or self-care (01) | DRG 720 ==
LOC: MED 23:59 → MTU 07-01 03:26
PROVIDERS: ADMIT Internal Medicine; ATTEND Internal Medicine
PROC: 30233N1 Transfusion of Nonautologous Red Blood Cells into Peripheral Vein, Percutaneous Approach (ICD-10-PCS; principal; 2020-07-01)
DX: A41.9 Sepsis, unspecified organism (principal); I21.A1 Myocardial infarction type 2; I11.0 Hypertensive heart disease with heart failure; E87.2 Acidosis; Z20.828 Contact with and (suspected) exposure to other viral communicable diseases; I48.0 Paroxysmal atrial fibrillation; I25.2 Old myocardial infarction; Z82.49 Family history of ischemic heart disease and other diseases of the circulatory system; D64.9 Anemia, unspecified; J44.9 Chronic obstructive pulmonary disease, unspecified; I50.21 Acute systolic (congestive) heart failure
CPT/HCPCS: 36415; 36430; 36600; 71045; 80048; 80053; 82550; 82553; 82728; 82803; 83605; 83625; 83735; 83880; 84100; 84439; 84443; 84479; 84484; 85018; 85025; 85379; 85384; 85610; 85730; 86140; 86886; 86900; 86901; 86920; 87040; 87081; 87804; 93005; 96365; 96367; 96375; 97110; 97116; 97161-GP; 97530; 99291; 99292; J0456; J0696; J1100; J1756; J1940; J7060; P9016